=== PATIENT | female | born 1950 | race Caucasian/White ===

== ENCOUNTER 2017-10-18 07:38 | Emergency (ER) | payer OTHER ==
[~2017-10-18] VITALS: Ht 157.5 cm; Wt 49.9 kg
--- NOTE | 2017-10-18 07:50 | NUR ---
PT IS IN ROOM #2A. DR PRATHER EVALUATED THE PT.
[2017-10-18] MEDS ORDERED: FLUO20CA36 PO (07:56)
[2017-10-18] MEDS ORDERED: ANGELIQ PO (07:56)
[2017-10-18] MEDS ORDERED: SYNTHROID PO (07:56)
[2017-10-18] MEDS ORDERED: VALTREX PO (07:56)
[2017-10-18] MEDS ORDERED: IV NORMAL SALINE 1000 ML BAG IV ONE (08:00)
[2017-10-18] MEDS ORDERED: MECLIZINE HCL 25 MG TABLET PO ONE ×2 (08:00→10:00)
[2017-10-18] MEDS ORDERED: ONDANSETRON 4 MG/2 ML VIAL IV ONE (08:00)
[2017-10-18] MEDS ORDERED: LORAZEPAM 2 MG/1 ML VIAL IV ONE (08:00)
[2017-10-18] MEDS ORDERED: MECLIZINE HCL 25 MG TABLET ONE ×2 (08:11→10:05)
[2017-10-18] MEDS ORDERED: ONDANSETRON 4 MG/2 ML VIAL ONE (08:11)
[2017-10-18] MEDS ORDERED: LORAZEPAM 2 MG/1 ML VIAL ONE (08:12)
[2017-10-18 08:28] LABS: BASOPHILS % (AUTO) 0.7 % (0.0-2.0); EOSINOPHILS % (AUTO) 0.4 % (0.0-7.0); HEMATOCRIT 41.3 % (31.2-41.9); LYMPHOCYTES # (AUTO) 0.9 K/uL (20.0-40.0); LYMPHOCYTES % (AUTO) 18.9 % (20.5-51.5); MEAN CORPUSCULAR HEMOGLOBIN 32.8 uug (24.7-32.8); MEAN CORPUSCULAR HGB CONC 34 g/dL (32.3-35.6); MEAN CORPUSCULAR VOLUME 96.9 fL (75.5-95.3); MONOCYTES # (AUTO) 0.3 K/uL (2.0-10.0); MONOCYTES % (AUTO) 7.4 % (0.0-11.0); NEUTROPHILS # (AUTO) 3.4 K/uL (1.8-8.9); NEUTROPHILS % (AUTO) 72.6 % (38.5-71.5); PLATELET COUNT (AUTO) 245 K/uL (179-408); RED BLOOD CELL COUNT(AUTO) 4.26 MIL/uL (3.63-4.92); WHITE BLOOD COUNT (AUTO) 4.7 K/uL (3.8-11.8)
[2017-10-18 08:35] LABS: CREATININE 0.8 mg/dL (0.6-1.3); POTASSIUM 3.7 mmol/L (3.5-5.1)
--- NOTE | 2017-10-18 11:02 | NUR ---
PT WAS D/C TO HOME. D/C INSTRUCTIONS GIVEN TO THE PT.
[2017-10-18 11:05] VITALS: BP 122/81
== END 2017-10-18 11:12 | disposition home or self-care (01) ==
LOC: ER 07:38
DX: R42 Dizziness and giddiness (principal); E86.0 Dehydration; E03.9 Hypothyroidism, unspecified; Z79.899 Other long term (current) drug therapy
CPT/HCPCS: 36415; 70030-TC; 85025; 93005; A4663; J2060; J2405; J7030; J8597